=== PATIENT | female | born 1980 | race Caucasian/White ===

== ENCOUNTER → 2016-08-28 | Outpatient (CLI) | payer OTHER ==
[~2016-08-28] MED LIST: AMOXIL500 MG PO; CYCLOBENZAPRINE10 MG PO; Motrin,Rufen800 MG PO; TRAMADOL HCL50 MG PO
[2016-08-28 11:48] LABS: BASO % 0.4 % (0.0-1.0); EOS # 0.1 10*3/uL (0.0-0.4); EOS % 1.1 % (1.0-4.0); HEMATOCRIT 42.3 % (37.0-47.0); HEMOGLOBIN 14.5 g/dl (12.0-16.0); LYMPH # 2.4 10*3/uL (1.3-4.4); LYMPH % 26.4 % (27.0-41.0); MEAN CELL VOLUME 92.6 fl (81.0-99.0); MEAN CORPUSCULAR HGB 31.7 pg (27.0-31.0); MEAN CORPUSCULAR HGB CONC 34.3 g/dl (33.0-37.0); MEAN PLATELET VOLUME 9.4 fl (9.6-12.3); MONO # 0.8 10*3/uL (0.1-1.0); MONO % 8.5 % (3.0-9.0); NEUT # 5.7 10*3/uL (2.3-7.9); NEUT % 63.3 % (47.0-73.0); PLATELET COUNT AUTOMATED 236 10*3/uL (130-400); RED BLOOD COUNT 4.57 10*6/uL (4.10-5.10); RED CELL DISTRI WIDTH 12.8 % (0-14.5)
[2016-08-28 12:19] LABS: ALBUMIN 3.8 gm/dl (3.1-4.5); ALKALINE PHOSPHATASE 60 U/L (45-117); BILIRUBIN, TOTAL 0.5 mg/dl (0.2-1.0); BUN 10 mg/dl (7-24); CARBON DIOXIDE 25 mmol/L (21-32); CHLORIDE 104 mmol/L (98-107); EST GLOM FILT AFRICAN AMERICAN > 60 ml/min; FREE T4 0.85 ng/dl (0.76-1.46); GLUCOSE 66 mg/dL (65-99); POTASSIUM 3.5 mmol/L (3.5-5.1); SGOT/AST 12 IU/L (3-35); SGPT/ALT 21 U/L (12-78); SODIUM 140 mmol/L (136-145); TOTAL PROTEIN 7.6 gm/dL (6.4-8.2)
== END | disposition home or self-care (01) ==
LOC: LAB 11:03
PROVIDERS: Psychiatry & Neurology Psychiatry
DX: F32.9 Major depressive disorder, single episode, unspecified (principal); E55.9 Vitamin D deficiency, unspecified

== ENCOUNTER → 2017-10-02 | Outpatient (CLI) | payer OTHER | END | disposition home or self-care (01) | LOC: RAD 10:57 | DX: D16.22 Benign neoplasm of long bones of left lower limb (principal) ==

== ENCOUNTER → 2017-10-06 | Outpatient (CLI) | payer OTHER ==
[2017-10-06 09:16] LABS: ALBUMIN 3.7 gm/dl (3.1-4.5); BUN 11 mg/dl (7-24); CHLORIDE 103 mmol/L (98-107); SODIUM 137 mmol/L (136-145)
[2017-10-06 09:29] LABS: ALKALINE PHOSPHATASE 54 U/L (45-117); CHOLESTEROL 153 mg/dL (<200); HDL CHOLESTEROL 46 mg/dl (40-60); LDL CHOLESTEROL 92 mg/dL (9-159); SGOT/AST 12 IU/L (3-35); SGPT/ALT 20 U/L (12-78); TOTAL PROTEIN 7.3 gm/dL (6.4-8.2); TRIGLYCERIDES 75 mg/dl (<150); VLDL CHOLESTEROL 15 mg/dL (6-40)
[2017-10-06 12:03] LABS: VITAMIN D, 25-HYDROXY 15.6 ng/mL (30-100)
== END | disposition home or self-care (01) ==
LOC: LAB 08:08
DX: F34.1 Dysthymic disorder (principal); Q24.9 Congenital malformation of heart, unspecified; E55.9 Vitamin D deficiency, unspecified; F17.200 Nicotine dependence, unspecified, uncomplicated; F32.9 Major depressive disorder, single episode, unspecified; R79.89 Other specified abnormal findings of blood chemistry

== ENCOUNTER → 2017-12-21 | Outpatient (CLI) | payer OTHER | END | disposition home or self-care (01) | LOC: ORTHO 03:31 | DX: D16.22 Benign neoplasm of long bones of left lower limb (principal) ==

== ENCOUNTER → 2018-01-01 | Outpatient (CLI) | payer OTHER | END | disposition home or self-care (01) | LOC: CT 14:50 | DX: M25.562 Pain in left knee (principal); D16.9 Benign neoplasm of bone and articular cartilage, unspecified ==